=== PATIENT | female | born 1995 | race Hispanic/Latino ===

== ENCOUNTER 2017-06-12 17:27 | Day surgery (SDC) | payer OTHER, SELFPAY ==
[2017-06-12 18:06] VITALS: BP 124/68; TEMP 98.6
[2017-06-12 18:07] VITALS: BMI 23.8
--- NOTE | 2017-06-12 19:01 | PDOC.LDPN ---
Labor & Delivery Progress Note - Subjective Subjective: comfortable - Objective Vital signs reviewed and normal: yes General: NAD, resting Uterine fundus: non tender Dilation: 0 Effacement: 0% Station: -3 FHT: category 1, variability present Isabel contractions every: few -: 21 yo G1 at 37 weeks. Appears to be lbp associated with increased lordosis and round ligament pain. Give 1000 of tylenol prn up to 4g per day. encourage PO hydration fu at clinic tomorrow.
[2017-06-12] MEDS ORDERED: Acetaminophen 500 MG TAB PO SCH (19:15)
== END 2017-06-12 19:20 | disposition home or self-care (01) ==
LOC: L&D/OP 17:27
PROVIDERS: ATTEND Obstetrics & Gynecology Obstetrics
DX: O99.89 Other specified diseases and conditions complicating pregnancy, childbirth and the puerperium (principal); M54.5 Low back pain; Z3A.37 37 weeks gestation of pregnancy; Z79.899 Other long term (current) drug therapy